=== PATIENT | female | born 1960 | race Caucasian/White ===

== ENCOUNTER → 2020-11-16 | Outpatient (CLI) | payer OTHER ==
[~2020-11-16] MED LIST: ALLEGRA ALLERGY60 MG PO; CITALOPRAM HBR40 MG PO; COLACE 100MG C100 MG PO; CYMBALTA 30 MG30 MG PO; KLONOPIN TAB 00.5 MG PO; LAMISIL TAB 25250 MG PO; METOPROLOL TART25 MG PO; OMEPRAZOLE20 MG PO; SINGULAIR10 MG PO
== END ==
LOC: KOH-I 14:55
DX: R22.2 Localized swelling, mass and lump, trunk (principal)
CPT/HCPCS: 71250